=== PATIENT | female | born 1990 | race Caucasian/White ===

== ENCOUNTER 2016-11-04 17:46 | Emergency (ER) | payer OTHER ==
--- NOTE | 2016-11-04 19:12 | DIAGNOSTIC IMAGING REPORT ---
PROCEDURE: CT HEAD WITHOUT CONTRAST INDICATION: Headache x3 days. TECHNIQUE: Noncontrast axial images with sagittal and coronal reformations. COMPARISON: None. FINDINGS: Minor motion artifacts. Sulci, ventricular system, and brain parenchyma are normal. No evidence of acute intracranial process. Mild right maxillary sinus disease. Mastoids are clear. IMPRESSION: 1. No acute intracranial abnormality 2. Mild right maxillary sinus disease 3. Findings discussed with Mandy Dhillon at 07:07 p.m. [facility]
--- NOTE | 2016-11-04 19:23 | ED ORDER SUMMARY ---
..... Patient: ALANA ALVAREZ OrderSheet [facility] VisitID: [id number] [address] [place] [address] 26y, F Registration Date/Time: 11/04/2016 ORDER SHEET Weight: 68.9 kg (stated) Allergies: Penicillins GENERAL ORDERS: CT Head wo Cont Urgent (18:46 11/04/2016 HBivens A.R.N.P.) (Ack 18:48 IJurca ER Tech1) (19:20 [facility]) MEDICATION ORDERS: Toradol IM 60 mg (NOW) (18:45 11/04/2016 HBivens A.R.N.P.) (Ack 19:06 CBradburn R.N.) Benadryl IM 50 mg (NOW) (18:45 11/04/2016 HBivens A.R.N.P.) (Ack 19:06 CBradburn R.N.) - (Reglan 10mg im stat) (18:46 11/04/2016 HBivens A.R.N.P.) (Ack 19:06 CBradburn R.N.) IV FLUIDS: ORDER SHEET NOTES: [Electronically signed by Francisco Montano R.N. (19:44 11/04/2016)] [Electronically signed by Mandy DhillonR.N.P. (22:41 11/04/2016)] [Electronically locked/signed by Francisco Montano R.N. (19:44 11/04/2016)]
--- NOTE | 2016-11-04 19:23 | ED NURSING NOTES ---
Clinical Report - Nurses [facility] [place] [address] [address] 11/04/2016 17:48 Patient: ALANA ALVAREZ TRIAGE Triage time 18:16. Acuity: LEVEL 4. Chief Complaint: HEADACHE and (Pt was seen yesterday at [facility] for headache. The headache is worse today, she returned to the clinic and they sent her to the ER.). SEPSIS SCREEN: Sepsis Screen. Negative (no infection suspected/documented). LATIA COMA SCORE: [place] Coma Scale: 15- eyes open spontaneously (4); best verbal response- oriented x 4 (5); best motor response- obeys commands (6). --18:27 Rito Bhakta R.N. 18:16 11/04/16. BP: 133/78 (regular adult cuff) taken on the right arm, while sitting. HR: 70. RR: 16. O2 saturation: 96% on room air. Temp: 98.4 F (oral). Pain level now: 03/29. --18:27 Rito Bhakta R.N. Weight: 68.9 kg stated. Height/Length: 63 inches Per Patient. BMI: 26.9. --18:20 Rito Bhakta R.N. Medications Flonase Nasal. --18:18 Rito Bhakta R.N. Meloxicam Oral. --18:19 Rito Bhakta R.N. Allergies Penicillins.(Anaphylaxis) --18:19 Rito Bhakta R.N. History Arrived by private vehicle. Historian: patient. Treatment HISTORY DEPARTMENT CHAIR: (Fonase, Meloxicam). PAST MEDICAL HX: Last normal menstrual period- finished yesterday. SOCIAL HX: Heavy tobacco smoker (cigarette)- less than 1 pack per day. Occasional alcohol use. History of drug use: marijuana. (daily). No recent travel. ABUSE ASSESSMENT: No report of abuse. --18:27 Rito Bhakta R.N. PROBLEMS: Knee problems. Bronchitis. --18:20 Rito Bhakta R.N. ADDITIONAL SURGERIES: Tonsillectomy. --18:20 Rito Bhakta R.N. Interventions ID band on patient. To treatment room. --18:27 Rito Bhakta R.N. PHYSICAL ASSESSMENT late entry -18:16. Ambulatory to room. GENERAL / NEURO / PSYCH: Alert. Oriented X 4. Appears in pain. Speech within normal limits. ( c/o bilat temporal pain adn pain in the top of her head). HEENT: No facial asymmetry noted. Pupils equal, round and reactive to light. RESPIRATORY: Respirations not labored. Breath sounds within normal limits. CVS: Capillary refill less than 2 seconds. SKIN: Skin is warm and dry. --18:40 Rito Bhakta R.N. NURSING PROGRESS NOTES Head of bed elevated. Reassurance given. Lights dimmed. Two patient identifiers checked. Call light placed in reach. Bed placed in lowest position. Brakes of bed on. Patient ready for evaluation- chart flagged. --18:41 Rito Bhakta R.N. Care transferred and report received (received report from Rito LATIF, assumed care of pt). --19:05 Sheridan Irby R.N. 19:37 11/04/2016 Toradol IM 60 mg (NOW) was refused by patient because pain is gone. Sheridan Irby --19:37 Sheridan Irby R.N. 19:37 11/04/2016 Benadryl IM 50 mg (NOW) was refused by patient because pain is gone. Sheridan Irby --19:37 Sheridan Irby R.N. 19:37 11/04/2016 - (Reglan 10mg im stat) was refused by patient because pain is gone. Sheridan Irby --19:37 Sheridan Irby R.N. DISPOSITION / DISCHARGE Departure time: 19:43. Condition at departure: stable. No learning barriers present. Discharge instructions provided and reviewed with the patient. Reviewed warnings. Reviewed medication(s) side effects, precautions, dosing and course information. Prescription(s) given to the patient. Treatments reviewed. Reviewed referrals for followup. Patient verbalized understanding. Written instructions provided in Maldivian. The patient was discharged home and unaccompanied at time of discharge. She left the Emergency Department ambulatory and via private vehicle. ( pt states "I have a ride home."). --19:43 Francisco Montano R.N. 19:42 11/04/16. BP: 112/70. HR: 77. RR: 18 (regular and unlabored). O2 saturation: 100% on room air. --19:43 Francisco Montano R.N. Locked/Released at 11/04/2016 19:44 by Francisco Montano R.N.
--- NOTE | 2016-11-04 19:23 | ED CLINICAL REPORT ---
Clinical Report - Physicians/Mid Levels [facility] [address] [place] [address] 11/04/2016 17:48 Patient: ALANA ALVAREZ Time Seen: 18:39; initial patient contact, initial documentation, patient care assumed. Arrived- By private vehicle. Historian- patient. HISTORY OF PRESENT ILLNESS Is still present. Chief Complaint: HEADACHE. This started about 3 days ago. It was abrupt in onset and has been intermittent. It is described as "pain". Located in the region of the right eye and left eye, frontal region and facial region and described as a global headache. Has had neck pain. At its maximum, severity described as severe. When seen in the E.D., severity described as severe. Modifying factors: relieved by nothing. Not worsened by anything. No preceding symptoms, blurred vision, photophobia, associated nausea or numbness. No weakness or vomiting. No recent travel. Similar symptoms previously: None. Recent medical care: The patient was seen recently in a clinic. ( txed yesterday at , dx with uri, given nasal spray and meloxicam, meloxicam helped yesterday, but today it didn't, took one this morning). REVIEW OF SYSTEMS No fever, sinus pressure, ear pain, sore throat or head injury. No chest pain or difficulty breathing. All systems otherwise negative, except as recorded above. PAST HISTORY See nurses notes. PROBLEMS: Knee problems. Bronchitis. --18:20 Rito Bhakta R.N. ADDITIONAL SURGERIES: Tonsillectomy. --18:20 Rito Bhakta R.N. SOCIAL HISTORY Heavy tobacco smoker. Occasional alcohol use. History of heavy drug use: marijuana. Recently used drugs today. No recent travel. Is a local resident. FAMILY HISTORY Negative. ADDITIONAL NOTES The nursing notes have been reviewed with agreement regarding the chief complaint, HPI, ROS, PMH and patient medications and allergies. PHYSICAL EXAM Vital Signs: 11/04/2016 18:16 BP: 133/78. HR: 70. RR: 16. O2 saturation: 96%. Temp: 98.4 F. Pain level now: 1010. Have been reviewed as normal and appear to be correct. Appearance: Alert. No acute distress. Eyes: Pupils equal, round and reactive to light. Eyes normal inspection. ENT: Ears normal. Nose normal. Pharynx normal. Neck: Normal inspection. Neck supple. CVS: Normal heart rate and rhythm. Heart sounds normal. Pulses normal. Respiratory: No respiratory distress. Breath sounds normal. Back: Normal inspection. Skin: Skin warm and dry. Normal skin color. No rash. Normal skin turgor. Extremities: Extremities exhibit normal ROM. No lower extremity edema. Neuro: Oriented X 3. Alert. Mood/affect normal. Speech normal. Cranial nerves normal (as tested). No cerebellar findings. No motor deficit. No sensory deficit. LABS, X-RAYS, AND EKG CT Head: No acute disease. (IMPRESSION: 1. No acute intracranial abnormality 2. Mild right maxillary sinus disease 3. Findings discussed with Mandy Dhillon at 07:07 p.m. [facility] Electronically Final signed by:Alfred العلي MD 11/04/2016 7:12:16 PM). The study was interpreted by the radiologist and discussed with the radiologist. Interpretation time: 19:10. PROGRESS AND PROCEDURES Patient counseled in person regarding the patient's stable condition, test results and diagnosis. 19:13. Differential Diagnosis: I considered migraine, cluster headache, subarachnoid hemorrhage, intracranial bleed, vascular malformation, cerebral aneurysm, vascular dissection, vasculitis, temporal arteritis, brain abscess, sinusitis, dental etiology, influenza, viral syndrome, analgesic abuse, hypoglycemia and trigeminal neuralgia as a possible cause of headache in this patient. This is a partial list of diagnoses considered. Above considerations are based on history, physical exam, reassessment and other information. Differential diagnosis was discussed with patient. Disposition: Discharged home in good and improved condition (19:23). Condition: good and stable. CLINICAL IMPRESSION Acute maxillary sinusitis INSTRUCTIONS Do not work today. (continue prescriptions as directed, may also try saline sinus wash and over the counter decongestant). Warnings: GENERAL WARNINGS: Return or contact your physician immediately if your condition worsens or changes unexpectedly, if not improving as expected, or if other problems arise. SPECIFICALLY, return if you develop fever, vomiting, numbness, weakness, difficulty thinking, visual disturbances, fainting or extreme fatigue. Prescription Medications: Bactrim DS 800 mg / 160 mg: take 1 tablet orally every 12 hours for 10 days. No refill. Follow-up: Follow up with your doctor in about five days as needed. Call for an appointment. Summary of care provided to patient. Understanding of the discharge instructions verbalized by patient. (Electronically signed by Mandy Dhillon A.R.N.P. 11/04/2016 22:41)
--- NOTE | 2016-11-04 19:23 | ED NURSING NOTES ---
Clinical Report - Nurses [facility] [place] [address] 11/04/2016 17:48 Patient: ALANA ALVAREZ TRIAGE Triage time 18:16. Acuity: LEVEL 4. Chief Complaint: HEADACHE and (Pt was seen yesterday at [facility] for headache. The headache is worse today, she returned to the clinic and they sent her to the ER.). SEPSIS SCREEN: Sepsis Screen. Negative (no infection suspected/documented). LATIA COMA SCORE: [place] Coma Scale: 15- eyes open spontaneously (4); best verbal response- oriented x 4 (5); best motor response- obeys commands (6). --18:27 Rito Bhakta R.N. 18:16 11/04/16. BP: 133/78 (regular adult cuff) taken on the right arm, while sitting. HR: 70. RR: 16. O2 saturation: 96% on room air. Temp: 98.4 F (oral). Pain level now: 03/29. --18:27 Rito Bhakta R.N. Weight: 68.9 kg stated. Height/Length: 63 inches Per Patient. BMI: 26.9. --18:20 Rito Bhakta R.N. Medications Flonase Nasal. --18:18 Rito Bhakta R.N. Meloxicam Oral. --18:19 Rito Bhakta R.N. Allergies Penicillins.(Anaphylaxis) --18:19 Rito Bhakta R.N. History Arrived by private vehicle. Historian: patient. 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 PAST MEDICAL HX: Last normal menstrual period- finished yesterday. SOCIAL HX: Heavy tobacco smoker (cigarette)- less than 1 pack per day. Occasional alcohol use. History of drug use: marijuana. (daily). No recent travel. ABUSE ASSESSMENT: No report of abuse. --18:27 Rito Bhakta R.N. PROBLEMS: Knee problems. Bronchitis. --18:20 Rito Bhakta R.N. ADDITIONAL SURGERIES: Tonsillectomy. --18:20 Rito Bhakta R.N. Interventions ID band on patient. To treatment room. --18:27 Riot Bhakta R.N. PHYSICAL ASSESSMENT late entry -18:16. Ambulatory to room. GENERAL / NEURO / PSYCH: Alert. Oriented X 4. Appears in pain. Speech within normal limits. ( c/o bilat temporal pain adn pain in the top of her head). HEENT: No facial asymmetry noted. Pupils equal, round and reactive to light. RESPIRATORY: Respirations not labored. Breath sounds within normal limits. CVS: Capillary refill less than 2 seconds. SKIN: Skin is warm and dry. --18:40 Rito Bhakta R.N. NURSING PROGRESS NOTES Head of bed elevated. Reassurance given. Lights dimmed. Two patient identifiers checked. Call light placed in reach. Bed placed in lowest position. Brakes of bed on. Patient ready for evaluation- chart flagged. --18:41 Rito Bhakta R.N. Care transferred and report received (received report from Rito LATIF, assumed care of pt). --19:05 Sheridan Irby R.N. 19:37 11/04/2016 Toradol IM 60 mg (NOW) was refused by patient because pain is gone. Sheridan Irby --19:37 Sheridan Irby R.N. 19:37 11/04/2016 Benadryl IM 50 mg (NOW) was refused by patient because pain is gone. Sheridan Irby --19:37 Sheridan Irby R.N. 19:37 11/04/2016 - (Reglan 10mg im stat) was refused by patient because pain is gone. Sheridan Irby --19:37 Sheridan Irby R.N. DISPOSITION / DISCHARGE Departure time: 19:43. Condition at departure: stable. No learning barriers present. Discharge instructions provided and reviewed with the patient. Reviewed warnings. Reviewed medication(s) side effects, precautions, dosing and course information. Prescription(s) given to the patient. Treatments reviewed. Reviewed referrals for followup. Patient verbalized understanding. Written instructions provided in Guatemalan. The patient was discharged home and unaccompanied at time of discharge. She left the Emergency Department ambulatory and via private vehicle. ( pt states "I have a ride home."). --19:43 Francisco Montano R.N. 19:42 11/04/16. BP: 112/70. HR: 77. RR: 18 (regular and unlabored). O2 saturation: 100% on room air. --19:43 Francisco Montano R.N. Locked/Released at 11/04/2016 19:44 by Francisco Montano R.N.
--- NOTE | 2016-11-04 19:23 | ED ORDER SUMMARY ---
..... Patient: ALANA ALVAREZ OrderSheet [facility] VisitID: [id number] [address] [place] [address] 26y, F Registration Date/Time: 11/04/2016 ORDER SHEET Weight: 68.9 kg (stated) Allergies: Penicillins GENERAL ORDERS: CT Head wo Cont Urgent (18:46 11/04/2016 HBivens A.R.N.P.) (Ack 18:48 IJurca ER Tech1) (19:20 [facility]) MEDICATION ORDERS: Toradol IM 60 mg (NOW) (18:45 11/04/2016 HBivens A.R.N.P.) (Ack 19:06 CBradburn R.N.) Benadryl IM 50 mg (NOW) (18:45 11/04/2016 HBivens A.R.N.P.) (Ack 19:06 CBradburn R.N.) - (Reglan 10mg im stat) (18:46 11/04/2016 HBivens A.R.N.P.) (Ack 19:06 CBradburn R.N.) IV FLUIDS: ORDER SHEET NOTES: [Electronically signed by Francisco Montano R.N. (19:44 11/04/2016)] [Electronically signed by Mandy DhillonR.N.P. (22:41 11/04/2016)] [Electronically locked/signed by Francisco Montano R.N. (19:44 11/04/2016)]
--- NOTE | 2016-11-04 22:42 | ED MAR SUMMARY ---
..... Medication Administration Record [facility] [address], [place] [id number] Patient: ALANA ALVAREZ Visit ID: [id number] 26y, F Weight: 68.9 kg Height/Length: 63 in BMI: 26.9 ALLERGIES: Penicillins
--- NOTE | 2016-11-04 22:42 | ED DISCHARGE INSTRUCTIONS ---
Patient: ALANA ALVAREZ General Instructions [facility] VisitID: [id number] [place] [address] 26y, F Registration Date/Time: 11/04/2016 Acute maxillary sinusitis INSTRUCTIONS Do not work today. (continue prescriptions as directed, may also try saline sinus wash and over the counter decongestant). Warnings: GENERAL WARNINGS: Return or contact your physician immediately if your condition worsens or changes unexpectedly, if not improving as expected, or if other problems arise. SPECIFICALLY, return if you develop fever, vomiting, numbness, weakness, difficulty thinking, visual disturbances, fainting or extreme fatigue. Prescription Medications: Bactrim DS 800 mg / 160 mg: take 1 tablet orally every 12 hours for 10 days. No refill. Follow-up: Follow up with your doctor in about five days as needed. Call for an appointment. Summary of care provided to patient. Understanding of the discharge instructions verbalized by patient. ADDITIONAL INFORMATION Sinusitis [Abx Tx] The sinuses are air-filled spaces within the bones of the face. They connect to the inside of the nose. Sinusitis is an inflammation of the tissue lining the sinus cavity. Sinus inflammation can occur during a cold or hay-fever (allergies to pollens and other particles in the air) and cause symptoms of sinus congestion and fullness. A sinus infection causes fever, headache and facial pain. There is usually green or yellow drainage from the nose or into the back of the throat (post-nasal drip). Antibiotics are prescribed to treat this condition. Home Care: Drink plenty of water, hot tea, and other liquids to stay well hydrated. This thins the mucus and promotes sinus drainage. Apply heat to the painful areas of the face. Use a towel soaked in hot water. Or, process improvement engineer the shower and direct the hot spray onto your face. This is a good way to inhale warm water vapor and get heat on your face at the same time. (Cover your mouth and nose with your hands so you can still breathe as you do this.) Use a vaporizer with products such as Vicks VapoRub (contains menthol) at night. Suck on peppermint, menthol or eucalyptus hard candies during the day. An expectorant containing guaifenesin (such as Robitussin), helps to thin the mucus and promote drainage from the sinuses. [id number]-qnciren decongestants may be used unless a similar medicine was prescribed. Nasal sprays work the fastest. Use one that contains phenylephrine (Ilya-synephrine, Sinex and others) or oxymetazoline (Afrin). First blow the nose gently to remove mucus, then apply the drops. Do not use these medicines more often than directed on the label or for more than three days or symptoms may worsen. You may also use tablets containing pseudoephedrine (Sudafed). Many sinus remedies combine ingredients, which may increase side effects. Read the labels or ask the pharmacist for help. NOTE: Persons with high blood pressure should not use decongestants. They can raise blood pressure. Antihistamines are useful if allergies are a cause of your sinusitis. The mildest one is chlorpheniramine (available without a prescription). The dose for adults is 8-12mg three times a day. [NOTE: Do not use chlorpheniramine if you have glaucoma or if you are a man with trouble urinating due to an enlarged prostate.] Claritin (loratidine) is an antihistamine that causes less drowsiness and is a good alternative for daytime use. Do not use nasal rinses or irrigation during an acute sinus infection, unless advised by your doctor. Rinsing may spread the infection to other sinuses. You may use acetaminophen (Tylenol) or ibuprofen (Motrin, Advil) to control pain, unless another pain medicine was prescribed. [ NOTE: If you have chronic liver or kidney disease or ever had a stomach ulcer, talk with your doctor before using these medicines.] (Aspirin should never be used in anyone under 18 years of age who is ill with a fever. It may cause severe liver damage.) Finish the full course, even if you are feeling better after a few days. Follow Up with your doctor or this facility in one week or as instructed by our staff if not improving. Get Prompt Medical Attention if any of the following occur: Facial pain or headache becomes more severe Stiff neck Unusual drowsiness or confusion, or not acting like your normal self Swelling of the forehead or eyelids Vision problems including blurred or double vision Fever of 100.4F (38C) or higher, or as directed by your healthcare provider Seizure Sulfamethoxazole, Trimethoprim Oral tablet What is this medicine? SULFAMETHOXAZOLE; TRIMETHOPRIM or SMX-TMP (suhl fuh meth OK gino zohl; trye METH oh prim) is a combination of a sulfonamide antibiotic and a second antibiotic, trimethoprim. It is used to treat or prevent certain kinds of bacterial infections. It will not work for colds, flu, or other viral infections. How should I use this medicine? Take this medicine by mouth with a full glass of water. Follow the directions on the prescription label. Take your medicine at regular intervals. Do not take it more often than directed. Do not skip doses or stop your medicine early. Talk to your secondary social studies teacher regarding the use of this medicine in children. Special care may be needed. This medicine has been used in children as young as 2 months of age. What side effects may I notice from receiving this medicine? Side effects that you should report to your doctor or health critical care unit manager as soon as possible: allergic reactions like skin rash or hives, swelling of the face, lips, or tongue breathing problems fever or chills, sore throat irregular heartbeat, chest pain joint or muscle pain pain or difficulty passing urine red pinpoint spots on skin redness, blistering, peeling or loosening of the skin, including inside the mouth unusual bleeding or bruising unusually weak or tired yellowing of the eyes or skin Side effects that usually do not require medical attention (report to your doctor or health critical care unit manager if they continue or are bothersome): diarrhea dizziness headache loss of appetite nausea, vomiting nervousness What may interact with this medicine? Do not take this medicine with any of the following medications: aminobenzoate potassium dofetilide metronidazole This medicine may also interact with the following medications: JOSEFA inhibitors like benazepril, enalapril, lisinopril, and ramipril cyclosporine digoxin diuretics indomethacin medicines for diabetes methenamine methotrexate phenytoin potassium supplements pyrimethamine sulfinpyrazone tricyclic antidepressants warfarin What if I miss a dose? If you miss a dose, take it as soon as you can. If it is almost time for your next dose, take only that dose. Do not take double or extra doses. Where should I keep my medicine? Keep out of the reach of children. Store at room temperature between 20 to 25 degrees C (68 to 77 degrees F). Protect from light. Throw away any unused medicine after the expiration date. What should I tell my health care provider before I take this medicine? They need to know if you have any of these conditions: anemia asthma being treated with anticonvulsants if you frequently drink alcohol containing drinks kidney disease liver disease low level of folic acid or [id number] dehydrogenase poor nutrition or malabsorption porphyria severe allergies thyroid disorder an unusual or allergic reaction to sulfamethoxazole, trimethoprim, sulfa drugs, other medicines, foods, dyes, or preservatives or trying to get breast-feeding What should I watch for while using this medicine? Tell your doctor or health critical care unit manager if your symptoms do not improve. Drink several glasses of water a day to reduce the risk of kidney problems. Do not treat diarrhea with over the counter products. Contact your doctor if you have diarrhea that lasts more than 2 days or if it is severe and watery. This medicine can make you more sensitive to the sun. Keep out of the sun. If you cannot avoid being in the sun, wear protective clothing and use a sunscreen. Do not use sun lamps or tanning beds/booths. You have been given the following additional information: Sinusitis, Abx Tx Sulfamethoxazole, Trimethoprim Oral tablet Do not work today. (Electronically signed by Manyd Dhillon A.R.N.P. 11/04/2016 22:41)
--- NOTE | 2016-11-04 22:42 | ED MED RECONCILIATION SUMMARY ---
Patient: ALANA ALVAREZ Medication Reconciliation Report [facility] VisitID: [id number] [address] [place] [address] 26y, F Registration Date/Time: 11/04/2016 Weight: 68.9 kg Height/Length: 63 in. BMI: 26.9 ALLERGIES: Penicillins The patient's Home Medications are listed below: THE FOLLOWING MEDICATIONS NEED TO BE RECONCILED: Flonase Nasal Meloxicam Oral The source(s) of the original Home Medication information: Not obtained. The following Medications were given to the patient in the Emergency Department: None. The following Medications were prescribed to the patient: Bactrim DS 800 mg / 160 mg: take 1 tablet orally every 12 hours for 10 days. No refill. -- Mandy Dhillon A.R.N.P.
--- NOTE | 2016-11-04 22:42 | ED DISCHARGE INSTRUCTIONS ---
Patient: ALANA ALVAREZ General Instructions Merged With [facility] VisitID: [id number] [place] [address] 26y, F Registration Date/Time: 11/04/2016 Acute maxillary sinusitis INSTRUCTIONS Do not work today. (continue prescriptions as directed, may also try saline sinus wash and over the counter decongestant). Warnings: GENERAL WARNINGS: Return or contact your physician immediately if your condition worsens or changes unexpectedly, if not improving as expected, or if other problems arise. SPECIFICALLY, return if you develop fever, vomiting, numbness, weakness, difficulty thinking, visual disturbances, fainting or extreme fatigue. Prescription Medications: Bactrim DS 800 mg / 160 mg: take 1 tablet orally every 12 hours for 10 days. No refill. Follow-up: Follow up with your doctor in about five days as needed. Call for an appointment. Summary of care provided to patient. Understanding of the discharge instructions verbalized by patient. ADDITIONAL INFORMATION Sinusitis [Abx Tx] The sinuses are air-filled spaces within the bones of the face. They connect to the inside of the nose. Sinusitis is an inflammation of the tissue lining the sinus cavity. Sinus inflammation can occur during a cold or hay-fever (allergies to pollens and other particles in the air) and cause symptoms of sinus congestion and fullness. A sinus infection causes fever, headache and facial pain. There is usually green or yellow drainage from the nose or into the back of the throat (post-nasal drip). Antibiotics are prescribed to treat this condition. Home Care: Drink plenty of water, hot tea, and other liquids to stay well hydrated. This thins the mucus and promotes sinus drainage. Apply heat to the painful areas of the face. Use a towel soaked in hot water. Or, resin painter the shower and direct the hot spray onto your face. This is a good way to inhale warm water vapor and get heat on your face at the same time. (Cover your mouth and nose with your hands so you can still breathe as you do this.) Use a vaporizer with products such as Vicks VapoRub (contains menthol) at night. Suck on peppermint, menthol or eucalyptus hard candies during the day. An expectorant containing guaifenesin (such as Robitussin), helps to thin the mucus and promote drainage from the sinuses. Pkaq-nbq-[id number] decongestants may be used unless a similar medicine was prescribed. Nasal sprays work the fastest. Use one that contains phenylephrine (Ilya-synephrine, Sinex and others) or oxymetazoline (Afrin). First blow the nose gently to remove mucus, then apply the drops. Do not use these medicines more often than directed on the label or for more than three days or symptoms may worsen. You may also use tablets containing pseudoephedrine (Sudafed). Many sinus remedies combine ingredients, which may increase side effects. Read the labels or ask the pharmacist for help. NOTE: Persons with high blood pressure should not use decongestants. They can raise blood pressure. Antihistamines are useful if allergies are a cause of your sinusitis. The mildest one is chlorpheniramine (available without a prescription). The dose for adults is 8-12mg three times a day. [NOTE: Do not use chlorpheniramine if you have glaucoma or if you are a man with trouble urinating due to an enlarged prostate.] Claritin (loratidine) is an antihistamine that causes less drowsiness and is a good alternative for daytime use. Do not use nasal rinses or irrigation during an acute sinus infection, unless advised by your doctor. Rinsing may spread the infection to other sinuses. You may use acetaminophen (Tylenol) or ibuprofen (Motrin, Advil) to control pain, unless another pain medicine was prescribed. [ NOTE: If you have chronic liver or kidney disease or ever had a stomach ulcer, talk with your doctor before using these medicines.] (Aspirin should never be used in anyone under 18 years of age who is ill with a fever. It may cause severe liver damage.) Finish the full course, even if you are feeling better after a few days. Follow Up with your doctor or this facility in one week or as instructed by our staff if not improving. Get Prompt Medical Attention if any of the following occur: Facial pain or headache becomes more severe Stiff neck Unusual drowsiness or confusion, or not acting like your normal self Swelling of the forehead or eyelids Vision problems including blurred or double vision Fever of 100.4F (38C) or higher, or as directed by your healthcare provider Seizure Sulfamethoxazole, Trimethoprim Oral tablet What is this medicine? SULFAMETHOXAZOLE; TRIMETHOPRIM or SMX-TMP (suhl fuh meth OK gino zohl; trye METH oh prim) is a combination of a sulfonamide antibiotic and a second antibiotic, trimethoprim. It is used to treat or prevent certain kinds of bacterial infections. It will not work for colds, flu, or other viral infections. How should I use this medicine? Take this medicine by mouth with a full glass of water. Follow the directions on the prescription label. Take your medicine at regular intervals. Do not take it more often than directed. Do not skip doses or stop your medicine early. Talk to your purchasing and fiscal clerk regarding the use of this medicine in children. Special care may be needed. This medicine has been used in children as young as 2 months of age. What side effects may I notice from receiving this medicine? Side effects that you should report to your doctor or health healthcare customer service as soon as possible: allergic reactions like skin rash or hives, swelling of the face, lips, or tongue breathing problems fever or chills, sore throat irregular heartbeat, chest pain joint or muscle pain pain or difficulty passing urine red pinpoint spots on skin redness, blistering, peeling or loosening of the skin, including inside the mouth unusual bleeding or bruising unusually weak or tired yellowing of the eyes or skin Side effects that usually do not require medical attention (report to your doctor or health healthcare customer service if they continue or are bothersome): diarrhea dizziness headache loss of appetite nausea, vomiting nervousness What may interact with this medicine? Do not take this medicine with any of the following medications: aminobenzoate potassium dofetilide metronidazole This medicine may also interact with the following medications: JOSEFA inhibitors like benazepril, enalapril, lisinopril, and ramipril cyclosporine digoxin diuretics indomethacin medicines for diabetes methenamine methotrexate phenytoin potassium supplements pyrimethamine sulfinpyrazone tricyclic antidepressants warfarin What if I miss a dose? If you miss a dose, take it as soon as you can. If it is almost time for your next dose, take only that dose. Do not take double or extra doses. Where should I keep my medicine? Keep out of the reach of children. Store at room temperature between 20 to 25 degrees C (68 to 77 degrees F). Protect from light. Throw away any unused medicine after the expiration date. What should I tell my health care provider before I take this medicine? They need to know if you have any of these conditions: anemia asthma being treated with anticonvulsants if you frequently drink alcohol containing drinks kidney disease liver disease low level of folic acid or [id number] dehydrogenase poor nutrition or malabsorption porphyria severe allergies thyroid disorder an unusual or allergic reaction to sulfamethoxazole, trimethoprim, sulfa drugs, other medicines, foods, dyes, or preservatives or trying to get breast-feeding What should I watch for while using this medicine? Tell your doctor or health healthcare customer service if your symptoms do not improve. Drink several glasses of water a day to reduce the risk of kidney problems. Do not treat diarrhea with over the counter products. Contact your doctor if you have diarrhea that lasts more than 2 days or if it is severe and watery. This medicine can make you more sensitive to the sun. Keep out of the sun. If you cannot avoid being in the sun, wear protective clothing and use a sunscreen. Do not use sun lamps or tanning beds/booths. You have been given the following additional information: Sinusitis, Abx Tx Sulfamethoxazole, Trimethoprim Oral tablet Do not work today. (Electronically signed by Mandy Dhillon A.R.N.P. 11/04/2016 22:41)
--- NOTE | 2016-11-04 22:42 | ED MED RECONCILIATION SUMMARY ---
Patient: ALANA ALVAREZ Medication Reconciliation Report [facility] VisitID: [id number] [address] [place] [address] 26y, F Registration Date/Time: 11/04/2016 Weight: 68.9 kg Height/Length: 63 in. BMI: 26.9 ALLERGIES: Penicillins The patient's Home Medications are listed below: THE FOLLOWING MEDICATIONS NEED TO BE RECONCILED: Flonase Nasal Meloxicam Oral The source(s) of the original Home Medication information: Not obtained. The following Medications were given to the patient in the Emergency Department: None. The following Medications were prescribed to the patient: Bactrim DS 800 mg / 160 mg: take 1 tablet orally every 12 hours for 10 days. No refill. -- Mandy Dhillon A.R.N.P.
--- NOTE | 2016-11-04 22:42 | ED MAR SUMMARY ---
..... Medication Administration Record [facility] [address] [place], [place] [id number] Patient: ALANA ALVAREZ Visit ID: [id number] 26y, F Weight: 68.9 kg Height/Length: 63 in BMI: 26.9 ALLERGIES: Penicillins
== END 2016-11-04 19:48 | disposition home or self-care (01) ==
LOC: ED SRH 17:46
DX: J01.00 Acute maxillary sinusitis, unspecified (principal); Z79.1 Long term (current) use of non-steroidal anti-inflammatories (NSAID); Z79.899 Other long term (current) drug therapy; F17.210 Nicotine dependence, cigarettes, uncomplicated; Z88.0 Allergy status to penicillin